=== PATIENT | male | born 1995 | race Caucasian/White ===

== ENCOUNTER 2023-07-18 10:24 | Emergency (ER) | payer BC, SELFPAY ==
[2023-07-18 10:29] VITALS: BP 143/109; PULSE 99; RESP 18; TEMP 36.7; O2SAT 98; BMI 33.0
--- NOTE | 2023-07-18 10:35 | XR_ITS ---
The [address] [address] Patient Name: XUAN CONNOR MRN: [id number] date: 1995 Sex: M Assigned Patient Location: ED.MAIN Current Patient Location: Accession/Order Number: [id number] Exam Date: 07/18/2023 11:00 Report Date: 07/18/2023 12:01 At the request of: JADON REED Procedure: XR hand RT min 3V EXAM: XR hand RT min 3V HISTORY: crush type injury ring finger COMPARISON: None. TECHNIQUE: 3 views of the right hand FINDINGS: There is no acute fracture or dislocation. The soft tissue is unremarkable. No radiopaque foreign body is noted. XR/XR hand RT min 3V IMPRESSION: No acute process. Electronically authenticated by: RICHARD ABBASI Date: 07/18/2023 12:01
--- NOTE | 2023-07-18 10:40 | ED.WOUNDLAC1 ---
HPI - Wound/Laceration General Chief Complaint: Wound/Laceration Stated Complaint: RT RING FINGER INJURY Time Seen by Provider: 07/18/23 10:29 Mode of arrival: walk-in Limitations: no limitations History of Present Illness HPI narrative: 28-year-old male presents for laceration and injury to his right ring finger. He was carrying a heavy item, a refrigerator and they were pushing it up into a truck but then it started falling backwards and the bottom of the refrigerator with a sharp edge of metal came down and crushed his finger. It caused a laceration. This happened just before coming into the emergency department. It's been a very long time since his last tetanus shot, he cannot recall. Related Data Allergies Allergy/AdvReac Type Severity Reaction Status Date / Time No Known Drug Allergies Allergy Verified 07/18/23 10:29 Review of Systems ROS Narrative A ten point review of systems is negative except as noted above. Exam Narrative Exam Narrative: Nurses note and vital signs reviewed and patient is not hypoxic. General: The patient appears well and in no apparent distress. Patient is resting comfortably on cart. Skin: Warm, dry, no pallor noted. There is no rash noted. Head: Normocephalic, atraumatic Eye: Normal conjunctiva, no drainage Ears, Nose, Mouth, and Throat: oral mucosa is moist. Nares patent. Cardiovascular: Regular Rate and Rhythm Respiratory: Patient is in no distress, no accessory muscle use GI: nontender Musculoskeletal: right ring finger has a linear laceration present, 1.5 cm in length. DIP and PIP have full range of motion. No other wounds are present. Neurological: A&O, normal speech Psychiatric: Cooperative Constitutional Vital Signs, click to edit/add: Last Vital Signs Temp 98.1 F 07/18/23 10:29 Pulse 99 H 07/18/23 10:29 Resp 18 07/18/23 10:29 BP 143/109 H 07/18/23 10:29 Pulse Ox 98 07/18/23 10:29 O2 Del Method Room Air 07/18/23 10:29 Course Vital Signs Vital signs: Vital Signs Temperature 98.1 F 07/18/23 10:29 Pulse Rate 99 H 07/18/23 10:29 Respiratory Rate 18 07/18/23 10:29 Blood Pressure 143/109 H 07/18/23 10:29 Pulse Oximetry 98 07/18/23 10:29 Oxygen Delivery Method Room Air 07/18/23 10:29 Temperature 98.1 F 07/18/23 10:29 Pulse Rate 99 H 07/18/23 10:29 Respiratory Rate 18 07/18/23 10:29 Blood Pressure 143/109 H 07/18/23 10:29 Pulse Oximetry 98 07/18/23 10:29 Oxygen Delivery Method Room Air 07/18/23 10:29 MDM - Wound/Laceration MDM Narrative Medical decision making narrative: the following procedure was performed by me. Finger block was applied to the right ring finger resulting in complete skin anesthesia. The area was prepped with Betadine ?3 and draped sterilely. It was explored for foreign bodies normal found and three 4-0 Ethilon sutures were placed resulting in good skin reapproximation and no complications. Splint applied, application checked by me and found to be appropriate, he is neurovascularly intact. Tetanus updated, sutures to be removed in 7-8 days. Differential Diagnosis Differential diagnosis: Likely laceration Imaging Data hand x-ray: My impression: no fracture. Possible tiny metallic foreign bodies present at the base of the 4th finger unrelated to today's injury. Discharge Plan Discharge Chief Complaint: Wound/Laceration Clinical Impression: Finger laceration Patient Disposition: Home, Self-Care Time of Disposition Decision: 11:31 Condition: Good Mode of Transportation: Private Vehicle Instructions: Finger Laceration (ED) Additional Instructions: Sutures to be removed in 7-8 days Stand Alone Forms: Portal Instructions Referrals: Physician,Non-Staff, MD [Primary Care Provider] - 1 week
[2023-07-18] MEDS: ADACEL DIPH,PERTUSS(ACELL),TET VAC/PF 0.5 ML ADULT SYRINGE IM (11:00)
[2023-07-18] MEDS: LIDOCAINE HCL 1% 100 MG/10 ML MDV INJ (11:00)
== END 2023-07-18 11:43 | disposition home or self-care (01) ==
PROVIDERS: Emergency Provider Emergency Medicine; Family Provider Family Medicine
DX: S61.214A Laceration without foreign body of right ring finger without damage to nail, initial encounter (principal); Z23 Encounter for immunization; W23.0XXA Caught, crushed, jammed, or pinched between moving objects, initial encounter
CPT/HCPCS: 12001; 73130; 90471; 90715; 99284

== ENCOUNTER 2023-11-15 16:51 | Observation (INO) | payer BC, SELFPAY ==
[2023-11-15] VITALS (16 sets, daily range): BP systolic 109–166; BP diastolic 68–93; PULSE 73–109; RESP 13–20; TEMP 36.3–37.5; O2SAT 88–97; BMI 33.0
--- NOTE | 2023-11-15 17:07 | ED_ITS ---
HPI - Abdominal Pain General Chief Complaint: Abdominal Pain Stated Complaint: LOWER R ABDOMINAL PAIN Time Seen by Provider: 11/15/23 16:56 Source: patient Mode of arrival: walk-in Limitations: no limitations History of Present Illness HPI narrative: The patient presenting to us with a right lower quadrant pain that started last night, patient have no fever no chills no other complaint he mentioned that the pain only limited to the right lower quadrant of his abdomen there is no nausea or vomiting and his last bowel movement was this morning. And his last time he had a meal was at 11:00 Related Data Home Medications Medication Instructions Recorded Confirmed No Known Home Medications 11/15/23 11/15/23 Allergies Allergy/AdvReac Type Severity Reaction Status Date / Time No Known Drug Allergies Allergy Verified 07/18/23 10:29 Review of Systems ROS Status of ROS 10 or more systems reviewed and unremark able except as noted in history and below [facility] Social History Smoking status: Never smoker Exam Narrative Exam Narrative: Nurses notes and vital signs reviewed and patient is not hypoxic. General: Well-appearing and in no apparent distress. Skin: Warm, dry, no pallor noted. No rash. Head: Normocephalic, atraumatic. Neck: Supple, non-tender. Eye: Pupils are equal, round and EOMI. No scleral icterus. Ears, NoseOral mucosa is moist, Cardiovascular: Regular Rate and Rhythm without murmur, gallop or rub. Respiratory: No accessory muscle use or respiratory distress. Lungs are clear to auscultation, no wheezing, rales or rhonchi Chest Wall: no tenderness Back: No midline thoracic or lumbar vertebral tenderness. No CVA tenderness Musculoskeletal: normal ROM, no calf or popliteal tenderness, no lower extremity edema/swelling GI: Abdomen is soft, non-distended. Normal bowel sounds. No masses appreciated. Right lower quadrant tenderness noted Neurological: A&O x4. No cranial nerve dysfunction observed. Psychiatric: Cooperative and interactive. Normal mood and affect. Constitutional Vital Signs, click to edit/add: Last Vital Signs Temp 99.5 F 11/15/23 16:55 Pulse 109 H 11/15/23 16:55 Resp 18 11/15/23 16:55 BP 166/93 H 11/15/23 16:55 Pulse Ox 94 L 11/15/23 16:55 O2 Del Method Room Air 11/15/23 16:55 Course Vital Signs Vital signs: Vital Signs Temperature 99.5 F 11/15/23 16:55 Pulse Rate 109 H 11/15/23 16:55 Respiratory Rate 18 11/15/23 16:55 Blood Pressure 166/93 H 11/15/23 16:55 Pulse Oximetry 94 L 11/15/23 16:55 Oxygen Delivery Method Room Air 11/15/23 16:55 Temperature 99.5 F 11/15/23 16:55 Pulse Rate 109 H 11/15/23 16:55 Respiratory Rate 18 11/15/23 16:55 Blood Pressure 166/93 H 11/15/23 16:55 Pulse Oximetry 94 L 11/15/23 16:55 Oxygen Delivery Method Room Air 11/15/23 16:55 MDM - Abdominal Pain MDM Narrative Medical decision making narrative: CBC shows leukocytosis blood culture obtained and the patient was started on ceftriaxone and Flagyl The patient CAT scan is positive for acute appendicitis Case was discussed with Dr. Gresham and the patient will be taken to surgery Patient kept n.p.o. Lab Data Labs: Lab Results 11/15/23 Range/Units 17:00 WBC 17.1 H (4.0-11.0) 10^3/uL RBC 5.23 (4.70-6.10) 10^6/uL Hgb 15.0 (14.0-18.0) g/dL Hct 45.0 (42.0-54.0) % MCV 86.0 (80.0-94.0) fL MCH 28.7 (25.9-34.0) pg MCHC 33.3 (29.9-35.2) g/dL RDW 12.8 (11.0-15.0) % Plt Count 319 (150-450) 10^3/uL MPV 9.8 (9.5-13.5) fL Neut % (Auto) 82.5 H (43.0-75.0) % Lymph % (Auto) 9.2 L (20.5-60.0) % Mcpherson % (Auto) 7.0 (1.7-12.0) % Eos % (Auto) 0.5 L (0.9-7.0) % Baso % (Auto) 0.5 (0.2-2.0) % Neut # (Auto) 14.1 H (1.4-6.5) 10^3/uL Lymph # (Auto) 1.6 (1.2-3.8) 10^3/uL [place] # (Auto) 1.2 H (0.3-0.8) 10^3/uL Eos # (Auto) 0.1 (0.0-0.7) 10^3/uL Baso # (Auto) 0.1 (0.0-0.1) 10^3/uL Abs Immat Gran (auto) 0.05 H (0.00-0.03) 10^3/uL Imm/Tot Granulo (auto) 0.3 (0.0-0.5) % Sodium 134 L (136-145) mmol/L Potassium 3.5 (3.5-5.1) mmol/L Chloride 98 (98-107) mmol/L Carbon Dioxide 28.2 (21.0-32.0) mmol/L Anion Gap 11.3 BUN 9.0 (7.0-18.0) mg/dL Creatinine 0.97 (0.70-1.30) mg/dL Est GFR ( Amer) >60 (>=60) Est GFR (Non-Af Amer) >60 (>=60) BUN/Creatinine Ratio 9.3 Glucose 99 (74-106) mg/dL Calcium 8.7 (8.5-10.1) mg/dL Total Bilirubin 0.5 (0.2-1.0) mg/dL AST 17 (15-37) U/L ALT 37 (16-63) U/L Alkaline Phosphatase 109 (46-116) U/L Total Protein 7.9 (6.4-8.2) g/dL Albumin 4.1 (3.4-5.0) g/dL Globulin 3.8 g/dL Albumin/Globulin Ratio 1.1 Discharge Plan Discharge Chief Complaint: Abdominal Pain Clinical Impression: Acute appendicitis Qualifiers: Acute appendicitis type: other Qualified Code(s): K35.890 - Other acute appendicitis without perforation or gangrene Patient Disposition: Admitted as Observation Time of Disposition Decision: 18:47
[2023-11-15] MEDS: KETOROLAC TROMETHAMINE 30 MG/ML VIAL 15 MG IVP (17:09)
[2023-11-15] MEDS: 0.9 % SODIUM CHLORIDE 1,000 ML 1000 ML IV (17:09)
[2023-11-15 17:13] LABS: Basophils Absolute Auto 0.1 10^3/uL (0.0-0.1); Basophils Percent Auto 0.5 % (0.2-2.0); Eosinophils Absolute Auto 0.1 10^3/uL (0.0-0.7); Eosinophils Percent Auto 0.5 % (0.9-7.0); Immature Granulocytes Abs Auto 0.05 10^3/uL (0.00-0.03); Immature Granulocytes Pct Auto 0.3 % (0.0-0.5); Lymphocytes Absolute Auto 1.6 10^3/uL (1.2-3.8); Lymphocytes Percent Auto 9.2 % (20.5-60.0); Mean Corpuscular HGB Conc 33.3 g/dL (29.9-35.2); Mean Corpuscular Hemoglobin 28.7 pg (25.9-34.0); Mean Platelet Volume 9.8 fL (9.5-13.5); Monocytes Absolute Auto 1.2 10^3/uL (0.3-0.8); Neutrophils Absolute Auto 14.1 10^3/uL (1.4-6.5); Neutrophils Percent Auto 82.5 % (43.0-75.0); Platelet Count 319 10^3/uL (150-450); Red Blood Count 5.23 10^6/uL (4.70-6.10); Red Cell Distribution Width 12.8 % (11.0-15.0); White Blood Count 17.1 10^3/uL (4.0-11.0)
--- NOTE | 2023-11-15 17:23 | CT_ITS ---
The [address] [address] Patient Name: XUAN CONNOR MRN: [id number] date: 1995 Sex: M Assigned Patient Location: ER Current Patient Location: ER Accession/Order Number: [id number] Exam Date: 11/15/2023 17:18 Report Date: 11/15/2023 18:32 At the request of: GEOVANNY KEANE Procedure: CT abdomen pelvis wo con EXAM: CT abdomen pelvis wo con HISTORY: rlq pain COMPARISON: None. TECHNIQUE: Unenhanced helical acquisition obtained through the abdomen and the pelvis. FINDINGS: The visualized lung bases and pleural spaces are clear. Unremarkable gallbladder. No significant biliary ductal dilatation. Allowing for the lack of intravenous contrast, the liver, spleen, pancreas, adrenal glands and the kidneys are unremarkable. Dilated inflamed appendix measuring 1.3 cm in diameter with adjacent mild periappendiceal inflammation. Trace ascites within the pelvis. No evidence of abscess or free intraperitoneal gas. Mildly enlarged ileocolic ligament lymph nodes consistent with reactive adenopathy. CT/CT abdomen pelvis wo con IMPRESSION: 1. Acute appendicitis. No evidence of appendiceal perforation. 2. Trace ascites. Critical results were NOTIFIED by TELEPHONE BY Dr. Mathiue Baldwin to Dr. Keane At 11/15/2023 6:09 PM EST. Electronically authenticated by: MATHIEU BALDWIN Date: 11/15/2023 18:32
[2023-11-15 17:25] LABS: Alanine Aminotransferase 37 U/L (16-63); Albumin Globulin Ratio 1.1; Albumin Level 4.1 g/dL (3.4-5.0); Alkaline Phosphatase 109 U/L (46-116); Anion Gap 11.3; Aspartate Amino Transferase 17 U/L (15-37); BUN Creatinine Ratio 9.3; Bilirubin Total 0.5 mg/dL (0.2-1.0); Calcium 8.7 mg/dL (8.5-10.1); Carbon Dioxide 28.2 mmol/L (21.0-32.0); Chloride 98 mmol/L (98-107); Estimated GFR (African America >60 (>=60); Estimated GFR (Non-African Ame >60 (>=60); Globulin 3.8 g/dL; Glucose 99 mg/dL (74-106); Potassium 3.5 mmol/L (3.5-5.1); Sodium 134 mmol/L (136-145); Total Protein 7.9 g/dL (6.4-8.2)
[2023-11-15] MEDS: CEFTRIAXONE 1,000 MG in 0.9 % SODIUM CHLORIDE 50 ML 100 MG IV (18:43)
[2023-11-15 18:52] LABS: Bilirubin Urine NEGATIVE (NEGATIVE); Blood Urine TRACE-I (NEGATIVE); Clarity Urine CLEAR (CLEAR); Color Urine LT. YELLOW (YELLOW); Glucose Urine UA NEGATIVE (NEGATIVE); Ketones Urine NEGATIVE (NEGATIVE); Leukocyte Esterase Urine NEGATIVE (NEGATIVE); Nitrite Urine NEGATIVE (NEGATIVE); Protein Urine NEGATIVE (NEG/TRACE); Urobilinogen Urine 0.2 EU/dL (0.2-1.0)
[2023-11-15 18:53] LABS: Urine Microscopic Indicated YES
[2023-11-15 18:58] LABS: Bacteria Urine NONE SEEN #/HPF (NONE SEEN); Mucus Urine NONE SEEN (NONE SEEN); Squamous Epithelial Cell Urine NONE SEEN #/LPF (NONE/RARE); WBC Urine NONE SEEN #/HPF (NONE SEEN)
[2023-11-15 18:59] LABS: Cast Seen? NONE SEEN #/LPF (NONE SEEN); Crystals Seen? None Seen #/HPF (None Seen)
--- NOTE | 2023-11-15 19:02 | PM.HP ---
H&P: HPI History of Present Illness Chief complaint: LOWER R ABDOMINAL PAIN Narrative: Dilan Haskins is a 28-year-old male who presented to the [facility] with complaints of right lower quadrant abdominal pain. CT scan of the abdomen and pelvis showed acute appendicitis. States the pain began this morning around 8:00-9:00 when he woke up. States he thought it was muscle pain so attempted to go to work and the pain did not resolve. He describes the pain as sharp and constant and states it worsens with movement. Rates the pain an 8-9/10 on admission. States pain is well controlled with pain medications recieved. Denies nausea, vomiting, diarrhea, constipation, blood in stools, fevers, chills. Previous surgical history significant for pilonidal cyst. Patient denies use of tobacco and admits to drinking socially [place] [address] CT Scan Report Signed Patient: XUAN HASKINS MR#: [id number] : 1995 Acct:[id number] Age/Sex: 28 / M ADM Date: 11/15/23 Loc: ER Attending Dr: Ordering Physician: Geovanny Keane Date of Service: 11/15/23 Procedure(s): CT abdomen pelvis wo con Accession Number(s): [id number] cc: Physician,Non-Staff M.D.~ The [place] [address] Patient Name: XUAN HASKINS MRN: [id number] date: 1995 Sex: M Assigned Patient Location: ER Current Patient Location: ER Accession/Order Number: [id number] Exam Date: 11/15/2023 17:18 Report Date: 11/15/2023 18:32 At the request of: GEOVANNY KEANE Procedure: CT abdomen pelvis wo con EXAM: CT abdomen pelvis wo con HISTORY: rlq pain COMPARISON: None. TECHNIQUE: Unenhanced helical acquisition obtained through the abdomen and the pelvis. FINDINGS: The visualized lung bases and pleural spaces are clear. Unremarkable gallbladder. No significant biliary ductal dilatation. Allowing for the lack of intravenous contrast, the liver, spleen, pancreas, adrenal glands and the kidneys are unremarkable. Dilated inflamed appendix measuring 1.3 cm in diameter with adjacent mild periappendiceal inflammation. Trace ascites within the pelvis. No evidence of abscess or free intraperitoneal gas. Mildly enlarged ileocolic ligament lymph nodes consistent with reactive adenopathy. CT/CT abdomen pelvis wo con IMPRESSION: 1. Acute appendicitis. No evidence of appendiceal perforation. 2. Trace ascites. Critical results were NOTIFIED by TELEPHONE BY Dr. Mathieu Baldwin to Dr. Keane At 11/15/2023 6:09 PM EST. Electronically authenticated by: MATHIEU BALDWIN Date: 11/15/2023 18:32 Dictated By: Mathieu Baldwin M.D. Signed By: 11/15/231834 DD/ 31 TD/TT: Customer Liaison: Review of Systems ROS Status of ROS 10 or more systems reviewed and unremarkable except as noted in history and below [facility] Social History Smoking status: Never smoker Meds Home Medications and Allergies Home Medications Medication Instructions Recorded Confirmed Type No Known Home Medications 11/15/23 11/15/23 History Allergies Allergy/AdvReac Type Severity Reaction Status Date / Time No Known Drug Allergies Allergy Verified 07/18/23 10:29 Exam Constitutional Vital Signs, click to edit/add: Last Vital Signs Temp 99.5 F 11/15/23 16:55 Pulse 109 H 11/15/23 16:55 Resp 18 11/15/23 16:55 BP 166/93 H 11/15/23 16:55 Pulse Ox 94 L 11/15/23 16:55 O2 Del Method Room Air 11/15/23 16:55 Common normals: no apparent distress, average body habitus and oriented x3 General appearance: cooperative and comfortable; not in distress Nutritional appearance: obese and overweight Orientation/consciousness: Yes awake, Yes oriented to person, Yes oriented to place and Yes oriented to time HENVT Common normals: normocephalic and head/scalp atraumatic Respiratory Common normals: normal respiratory effort Effort & inspection: able to speak in complete sentences Auscultation: clear to auscultation bilaterally; no crackles, no rales, no rhonchi and no wheezes Cardio Common normals: regular rhythm, S1 normal heart sound, S2 normal heart sound, no gallops, no murmurs and no rub Rate: tachycardic GI Inspection: normal to inspection Palpation: soft and tender Details: RLQ and McBurney's point Extremity Common normals: normal to inspection and full ROM Neuro Common normals: oriented x3 Sensorium/orientation: awake, alert, oriented to person, oriented to place and oriented to time Psych Common normals: mental status grossly normal, cooperative and affect normal Results Labs Labs: Short CBC 11/15/23 Range/Units 17:00 WBC 17.1 H (4.0-11.0) 10^3/uL Hgb 15.0 (14.0-18.0) g/dL Hct 45.0 (42.0-54.0) % Plt Count 319 (150-450) 10^3/uL BMP 11/15/23 17:00 Sodium 134 L Potassium 3.5 Chloride 98 Carbon Dioxide 28.2 BUN 9.0 Creatinine 0.97 Glucose 99 Calcium 8.7 Liver Function 11/15/23 Range/Units 17:00 Total Bilirubin 0.5 (0.2-1.0) mg/dL AST 17 (15-37) U/L ALT 37 (16-63) U/L Alkaline Phosphatase 109 (46-116) U/L Albumin 4.1 (3.4-5.0) g/dL Urine 11/15/23 Range/Units 18:30 Urine Color Lt. yellow (YELLOW) Urine Clarity Clear (CLEAR) Urine pH 6.0 (5.0-9.0) Ur Specific [place] 1.020 (1.005-1.025) Urine Protein Negative (NEG/TRACE) mg/dL Urine Glucose (UA) Negative (NEGATIVE) mg/dL Assessment and Plan Assessment and Plan (1) Acute appendicitis: Qualifiers: Acute appendicitis type: other Qualified Code(s): K35.890 - Other acute appendicitis without perforation or gangrene (2) Obesity (BMI 30.0-34.9): Plan laparoscopic appendectomy with possible open appendectomy. Risks benefits and alternatives to surgery may include infection, postoperative abscess weeks later, blood clots legs or lungs, bleeding, pneumonia, heart attack, stroke, and/or . He voiced understanding of the above and wish to proceed. It
[2023-11-15] MEDS: METRONIDAZOLE/SODIUM CHLORIDE 500 MG/100 ML PREMIX 100 MG IV (19:04)
--- OUTSIDE RECORDS SUMMARY | 2023-11-15 19:18 | XMS_ITS | CCD ---
Author Name Unknown Address [address] [place] [id number] Organization [facility] Care Team Providers Care Water Systems Designer Name Role Phone Bekah Nunez Unavailable MD Fede Hodges Primary Care Provider Devon French Attending Provider [phone] Fede Hodges Primary Care Unavailable Devon French Attending Unavailable Devon French Admitting Unavailable Medications Current Medications Medication Drug Class(es) Dates Sig (Normalized) Sig (Original) doxycycline monohydrate 100 mg oral capsule (1 source) Tetracycline-class Drug Start: 10-17-2022 take 1 capsule by mouth every twelve hours Doxycycline Monohydrate 100 MG 1 capsule Orally every 12 hrs for 7 days Sep, Active mupirocin 0.02 mg/mg topical ointment (1 source) RNA Synthetase Inhibitor Antibacterial Start: 10-17-2022 Mupirocin 2 % 1 application with Qtip to affected area Externally 2 times a day for 7 days Sep, Active Completed/Discontinued Medications Medication Drug Class(es) Dates Sig (Normalized) Sig (Original) cefTRIAXone (1 source) Cephalosporin Antibacterial Start: 05-18-2020 Rocephin 500 mg Apr, 500 mg Problems Problem Classification Problem Date Documented Da te Episodic/Chronic E Codes: Natural/environment (1 source) Bitten or stung by nonvenomous insect and other nonvenomous arthropods, initial encounter Episodic Superficial injury; contusion (1 source) Insect bite (nonvenomous), left ankle, initial encounter Episodic Unclassified (1 source) Encounter for fertility testing; Translations: [Encounter for fertility testing] Onset: 05-25-2023 Results Test Name Value Interpretation Reference Range Facility No Panel InformationOrdered By: Devon French on 05-25-2023 Semen Analysis Comment . [facility] Comment on above: No Abnormal specimen characteristics noted. Semen Round Cell Concentration Gross [facility] Semen WBC Concentration <1.0 M/mL <0.9 [facility] Sperm % Non-Motile 42 % [facility] Sperm Motility Total 58.0 % >40 [facility] Qualitative semen viscosityO rdered By: Devon French on 05-25-2023 Viscosity Ql (Yelena) Normal Normal [facility] Semen Analysis, Fertilityon 05-25-2023 Debris/Round Cells Gross Normal [facility] Comment on above: Order Comment: Metho d of Collection:: Masturbation Has the patient had a vasectomy?: N Type of Specimen Container:: Sterile Container Abstinence Period:: 6 DAYS Kept at body temperature?: Y Any Collection or Transport Problems?: N Performed By: #### S EMCOMP #### [facility] [address] [place] [address] [place] Immotile Sperm 42 % Normal [facility] Comment on above: Order Comment: Metho d of Collection:: Masturbation Has the patient had a vasectomy?: N Type of Specimen Container:: Sterile Container Abstinence Period:: 6 DAYS Kept at body temperature?: Y Any Collection or Transport Problems?: N Performed By: #### S EMCOMP #### [facility] [address] [place] [address] [place] Non-Progression Sperm Motili 13 % Normal [facility] Comment on above: Order Comment: Metho d of Collection:: Masturbation Has the patient had a vasectomy?: N Type of Specimen Container:: Sterile Container Abstinence Period:: 6 DAYS Kept at body temperature?: Y Any Collection or Transport Problems?: N Performed By: #### S EMCOMP #### [facility] [address] [place] [address] [place] Normal Sperm Morphology 9.0 % Normal >=4.0 [facility] Comment on above: Order Comment: Metho d of Collection:: Masturbation Has the patient had a vasectomy?: N Type of Specimen Container:: Sterile Container Abstinence Period:: 6 DAYS Kept at body temperature?: Y Any Collection or Transport Problems?: N Performed By: #### S EMCOMP #### [facility] [address] Rapid Progression Sperm Motili 45 % Normal [facility] Comment on above: Order Comment: Metho d of Collection:: Masturbation Has the patient had a vasectomy?: N Type of Specimen Container:: Sterile Container Abstinence Period:: 6 DAYS Kept at body temperature?: Y Any Collection or Transport Problems?: N Performed By: #### S EMCOMP #### [address] Semen Comment . Normal [facility] Comment on above: Order Comment: Metho d of Collection:: Masturbation Has the patient had a vasectomy?: N Type of Specimen Container:: Sterile Container Abstinence Period:: 6 DAYS Kept at body temperature?: Y Any Collection or Transport Problems?: N Result Comment: No A bnormal specimen characteristics noted. PERFORMED BY: [place] [address] PATHOLOGIST VISUAL MERCHANDISING MANAGER CLARISSA HENNESSY M.D. Performed By: #### S EMCOMP #### [address] Semen Liquefaction Normal Normal <=60 min [facility] Comment on above: Order Comment: Metho d of Collection:: Masturbation Has the patient had a vasectomy?: N Type of Specimen Container:: Sterile Container Abstinence Period:: 6 DAYS Kept at body temperature?: Y Any Collection or Transport Problems?: N Performed By: #### S EMCOMP #### [address] Semen Viscosity Normal Normal Normal [facility] Comment on above: Order Comment: Metho d of Collection:: Masturbation Has the patient had a vasectomy?: N Type of Specimen Container:: Sterile Container Abstinence Period:: 6 DAYS Kept at body temperature?: Y Any Collection or Transport Problems?: N Performed By: #### S EMCOMP #### [address] Semen Volume 2.0 mL Normal >=1.5 [facility] Comment on above: Order Comment: Metho d of Collection:: Masturbation Has the patient had a vasectomy?: N Type of Specimen Container:: Sterile Container Abstinence Period:: 6 DAYS Kept at body temperature?: Y Any Collection or Transport Problems?: N Performed By: #### S EMCOMP #### [facility] [address] Sperm Concentration 29.1 Normal >=15 [facility] Comment on above: Order Comment: Metho d of Collection:: Masturbation Has the patient had a vasectomy?: N Type of Specimen Container:: Sterile Container Abstinence Period:: 6 DAYS Kept at body temperature?: Y Any Collection or Transport Problems?: N Performed By: #### S EMCOMP #### [address] Total Motility (UT+MACHINE APPLICATOR CEMENTER) 58.0 % Normal >=40 (UT+MACHINE APPLICATOR CEMENTER) [facility] Comment on above: Order Comment: Metho d of Collection:: Masturbation Has the patient had a vasectomy?: N Type of Specimen Container:: Sterile Container Abstinence Period:: 6 DAYS Kept at body temperature?: Y Any Collection or Transport Problems?: N Performed By: #### S EMCOMP #### [address] WBC Concent, Semen <1.0 Normal <1.0 [facility] Comment on above: Order Comment: Metho d of Collection:: Masturbation Has the patient had a vasectomy?: N Type of Specimen Container:: Sterile Container Abstinence Period:: 6 DAYS Kept at body temperature?: Y Any Collection or Transport Problems?: N Performed By: #### S EMCOMP #### [address] Semen Analysis, FertilityOrd ered By: Devon French on 05-25-2023 Semen Appearance Normal Normal Normal [facility] Comment on above: Order Comment: Metho d of Collection:: Masturbation Has the patient had a vasectomy?: N Type of Specimen Container:: Sterile Container Abstinence Period:: 6 DAYS Kept at body temperature?: Y Any Collection or Transport Problems?: N Performed By: #### S EMCOMP #### [facility] [address] Semen pH 8.5 Normal >=7.2 [facility] Comment on above: Order Comment: Methnando d of Collection:: Masturbation Has the patient had a vasectomy?: N Type of Specimen Container:: Sterile Container Abstinence Period:: 6 DAYS Kept at body temperature?: Y Any Collection or Transport Problems?: N Performed By: #### S EMCOMP #### [facility] [address] [place] [id number] [facility] Semen liquefaction time alberto urementOrdered By: Devon French on 05-25-2023 Liquefaction (Yelena) [Time] Normal <=60 min [facility] Semen volumeOrdered By: Chris French on 05-25-2023 Specimen volume (Yelena) 2.0 mL >1.5 [facility] Sperm countOrdered By: Devon French on 05-25-2023 Spermatozoa (Yelena) [#/Vol] 29.1 M/mL >15 [facility] Sperm morphologyOrdered By: Devon French on 05-25-2023 Spermatozoa Nom (Yelena) 9.0 % >4.0 [facility] Vital Signs Date Time Vital Sign Value Performing Clinician Facility 10-17-2022 14:05-0500 Body height 185.42 cm Bekah Nunez Other [facility] Other 10-17-2022 14:05-0500 Body mass index (BMI) [Ratio] 32.65 kg/m2 Bekah Nunez Other [facility] Other 10-17-2022 14:05-0500 Body temperature 97.5 [degF] Bekah Nunez Other [facility] Other 10-17-2022 14:05-0500 Body weight 112.27 kg Bekah Nunez Other [facility] Other 10-17-2022 14:05-0500 Diastolic blood pressure 86 mm[Hg] Bekah Dela Cruzault Other [facility] Other 10-17-2022 14:05-0500 Respiratory rate 18 /min Bekah Dela Cruzault Other [facility] Other 10-17-2022 14:05-0500 SaO2% (BldA) [Mass fraction] 97 % Bekah Nunez Other [facility] Other 10-17-2022 14:05-0500 Systolic blood pressure 136 mm[Hg] Bekah Dela Cruzault Other [facility] Other Encounters Encounter Date Encounter Type Care Provider Facility Start: 05-25-2023 End: 05-25-2023 ambulatory Fede Hodges Facility:[facility] Start: 05-25-2023 End: 05-25-2023 ambulatory MD Fede Hodges Work Phone: [facility] Work Phone: Start: 05-25-2023 End: 05-25-2023 Patient encounter procedure MD Fede Hodges Work Phone: [facility] [place] Work Phone: Start: 10-17-2022 End: 10-17-2022 ambulatory Bekah Enrique Other [facility] Other Start: 10-17-2022 Office outpatient visit 15 minutes Bekah Nunez [facility] Payers Date Payer Category Payer [facility] [id number] 2023 Self-pay Unknown [id number] Social History Date Type Detail Facility Unknown if ever smoked [facility] Other Sex Assigned At Sex Assigned At Bir th [facility] Other Start: 1995 Sex Assigned At Male [facility] Clinical Note 05-25-2023 Note Date & Type Note Facility 05-25-2023 Note [facility] Sperm Rapid Progressive May 25, 2023 9:00am 45 % Clinical Note 05-25-2023 Note Date & Type Note Facility 05-25-2023 Note [facility] Sperm Non-Progressive May 25, 2023 9:00am 13 % Evaluation note 10-17-2022 Note Date & Type Note Facility 10-17-2022 Evaluation note Encounter Date Diagnosis Assessment Notes Sep, Insect bite (nonvenomous), left ankle, initial encounter (ICD-10 - S90.562A) Take medications as directed. Complete all doses. Unable to determine what type of insect cause bites. May try Calamine lotion and or Baking soda in bathtub for comfort. Follow up with primary care provider if no improvement of symptoms with treatment plan Sep, Bitten or stung by nonvenomous insect and other nonvenomous arthropods, initial encounter (ICD-10 - W57.XXXA) [facility] Other Evaluation note Note Date & Type Note Facility Evaluation note No assessment information availa [facility] Work Phone: Chief Complaint and Reason for Visit Chief Complaint fertility Advance Directives No Advanced Directives Records Found Advance Directive Response Recorded Date/ Time Advance Directives No May 18, 2023 11:54am Summary Purpose Family History No Family History Records Found Additional Source Comments REASON FOR VISIT (unrecogniz ed section and content) POSS BUG BITE LEFT ANKEL Care Teams (unrecognized sec tion and content) Team Status: Active Member Role Status Dates Feed Hodges MD Primary Care Provider Active Team Status: Inactive Member Role Status Dates Fede Hodges MD Primary Care Provider Active Devon French Attending Provider Active Goals (unrecognized section and content) Goals may be documented in a n alternate section (unrecognized sect ion and content) No Status Records Found INFORMATION SOURCE (unrecogn ized section and content) DATE CREATED AUTHOR 06/08/2023 [facility] FOR RECORDS PERTAINING TO PATIENTS WHO ARE OR HAVE BEEN ENROLLED IN A CHEMICAL DEPENDENCY/SUBSTANCEABUSE PROGRAM, SOME INFORMATION MAY BE OMITTED. This clinical summary was aggregated from multiple sources. Caution should be exercised in using it in the provision of clinical care. This summary normalizes information from multiple sources, and as a consequence, information in this document may materially change the coding, format and clinical context of patient data. In addition, data may be omitted in some cases. CLINICAL DECISIONS SHOULD BE BASED ON THE PRIMARY CLINICAL RECORDS. [facility]. provides no warranty or guarantee of the accuracy or completeness of information in this document.
--- OUTSIDE RECORDS SUMMARY | 2023-11-15 19:21 | XMS_ITS | CCD ---
Author Name Unknown Address [address] [place] [address] Organization [facility] Care Team Providers Care Motor Vehicle Parts Interpreter Name Role Phone Bekah Nunez Unavailable MD Fede Hodges Primary Care Provider Devon French Attending Provider [phone] Fede Hodges Primary Care Unavailable Devon French [...] French on 05-25-2023 Semen Analysis Comment . [facility] Comment on above: No Abnormal specimen characteristics noted. Semen Round Cell Concentration Gross [facility] Semen WBC Concentration <1.0 M/mL <0.9 [facility] Sperm % Non-Motile 42 % [facility] Sperm Motility Total 58.0 % >40 [facility] Qualitative semen viscosityO rdered By: Devon French on 05-25-2023 Viscosity Ql (Yelena) Normal Normal [facility] Semen Analysis, Fertilityon 05-25-2023 Debris/Round Cells Gross Normal [facility] Comment on above: Order Comment: Metho d of Collection:: Masturbation Has the patient had a vasectomy?: N Type of Specimen Container:: Sterile Container Abstinence Period:: 6 DAYS Kept at body temperature?: Y Any Collection or Transport Problems?: N Performed By: #### S EMCOMP #### [facility] [address] [place] [address] [place] Immotile Sperm 42 % Normal [facility] Comment on above: Order Comment: Metho d of Collection:: Masturbation Has the patient had a vasectomy?: N Type of Specimen Container:: Sterile Container Abstinence Period:: 6 DAYS Kept at body temperature?: Y Any Collection or Transport Problems?: N Performed By: #### S EMCOMP #### [facility] [address] [place] [address] [place] Non-Progression Sperm Motili 13 % Normal [facility] Comment on above: Order Comment: Metho d of Collection:: Masturbation Has the patient had a vasectomy?: N Type of Specimen Container:: Sterile Container Abstinence Period:: 6 DAYS Kept at body temperature?: Y Any Collection or Transport Problems?: N Performed By: #### S EMCOMP #### [facility] [address] [place] [address] [place] Normal Sperm Morphology 9.0 % Normal >=4.0 [facility] Comment on above: Order Comment: Metho d of Collection:: Masturbation Has the patient had a vasectomy?: N Type of Specimen Container:: Sterile Container Abstinence Period:: 6 DAYS Kept at body temperature?: Y Any Collection or Transport Problems?: N Performed By: #### S EMCOMP #### [facility] [address] [place] Progression Sperm Motili 45 % Normal [facility] Comment on above: Order Comment: Metho d of Collection:: Masturbation Has the patient had a vasectomy?: N Type of Specimen Container:: Sterile Container Abstinence Period:: 6 DAYS Kept at body temperature?: Y Any Collection or Transport Problems?: N Performed By: #### S EMCOMP #### [address] Semen Comment . Normal [facility] Comment on above: Order Comment: Metho d of Collection:: Masturbation Has the patient had a vasectomy?: N Type of Specimen Container:: Sterile Container Abstinence Period:: 6 DAYS Kept at body temperature?: Y Any Collection or Transport Problems?: N Result Comment: No A bnormal specimen characteristics noted. PERFORMED BY: [place] [address] PATHOLOGIST DRYWALL METAL STUD WORKER CLARISSA HENNESSY M.D. Performed By: #### S EMCOMP #### [address] Semen Liquefaction Normal Normal <=60 min [facility] Comment on above: Order Comment: Metho d of Collection:: Masturbation Has the patient had a vasectomy?: N Type of Specimen Container:: Sterile Container Abstinence Period:: 6 DAYS Kept at body temperature?: Y Any Collection or Transport Problems?: N Performed By: #### S EMCOMP #### [address] Semen Viscosity Normal Normal Normal [facility] Comment on above: Order Comment: Metho d of Collection:: Masturbation Has the patient had a vasectomy?: N Type of Specimen Container:: Sterile Container Abstinence Period:: 6 DAYS Kept at body temperature?: Y Any Collection or Transport Problems?: N Performed By: #### S EMCOMP #### [address] Semen Volume 2.0 mL Normal >=1.5 [facility] Comment on above: Order Comment: Metho d of Collection:: Masturbation Has the patient had a vasectomy?: N Type of Specimen Container:: Sterile Container Abstinence Period:: 6 DAYS Kept at body temperature?: Y Any Collection or Transport Problems?: N Performed By: #### S EMCOMP #### [facility] [address] Sperm Concentration 29.1 Normal >=15 [facility] Comment on above: Order Comment: Metho d of Collection:: Masturbation Has the patient had a vasectomy?: N Type of Specimen Container:: Sterile Container Abstinence Period:: 6 DAYS Kept at body temperature?: Y Any Collection or Transport Problems?: N Performed By: #### S EMCOMP #### [address] Total Motility (IL+BPM SOLUTION ARCHITECT) 58.0 % Normal >=40 (IL+BPM SOLUTION ARCHITECT) [facility] Comment on above: Order Comment: Metho d of Collection:: Masturbation Has the patient had a vasectomy?: N Type of Specimen Container:: Sterile Container Abstinence Period:: 6 DAYS Kept at body temperature?: Y Any Collection or Transport Problems?: N Performed By: #### S EMCOMP #### [address] WBC Concent, Semen <1.0 Normal <1.0 [facility] Comment on above: Order Comment: Metho d of Collection:: Masturbation Has the patient had a vasectomy?: N Type of Specimen Container:: Sterile Container Abstinence Period:: 6 DAYS Kept at body temperature?: Y Any Collection or Transport Problems?: N Performed By: #### S EMCOMP #### [address] Semen Analysis, FertilityOrd ered By: Devon French on 05-25-2023 Semen Appearance Normal Normal Normal [facility] Comment on above: Order Comment: Metho d of Collection:: Masturbation Has the patient had a vasectomy?: N Type of Specimen Container:: Sterile Container Abstinence Period:: 6 DAYS Kept at body temperature?: Y Any Collection or Transport Problems?: N Performed By: #### S EMCOMP #### [facility] [address] Semen pH 8.5 Normal >=7.2 [facility] Comment on above: Order Comment: Methnando d of Collection:: Masturbation Has the patient had a vasectomy?: N Type of Specimen Container:: Sterile Container Abstinence Period:: 6 DAYS Kept at body temperature?: Y Any Collection or Transport Problems?: N Performed By: #### S EMCOMP #### [facility] [address] [place] [id number] [facility] Semen liquefaction time alberto urementOrdered By: Devon French on 05-25-2023 Liquefaction (Yelena) [Time] Normal <=60 min [facility] Semen volumeOrdered By: Chris French on 05-25-2023 Specimen volume (Yelena) 2.0 mL >1.5 [facility] Sperm countOrdered By: Devon French on 05-25-2023 Spermatozoa (Yelena) [#/Vol] 29.1 M/mL >15 [facility] Sperm morphologyOrdered By: Devon French on 05-25-2023 [place] Nom (Yelena) 9.0 % >4.0 [facility] Vital Signs Date Time Vital Sign Value Performing Clinician Facility 10-17-2022 14:05-0500 Body height 185.42 cm Bekah Nnuez Other [email or web address] Other 10-17-2022 14:05-0500 Body mass index (BMI) [Ratio] 32.65 kg/m2 Bekah Nunez Other [email or web address] Other 10-17-2022 14:05-0500 Body temperature 97.5 [degF] Bekah Nunez Other [email or web address] Other 10-17-2022 14:05-0500 Body weight 112.27 kg Bekah Nunez Other [email or web address] Other 10-17-2022 14:05-0500 Diastolic blood pressure 86 mm[Hg] Bekah Dela Cruzault Other [email or web address] Other 10-17-2022 14:05-0500 Respiratory rate 18 /min Bekah Dela Cruzault Other [email or web address] Other 10-17-2022 14:05-0500 SaO2% (BldA) [Mass fraction] 97 % Bekah Nunez Other [email or web address] Other 10-17-2022 14:05-0500 Systolic blood pressure 136 mm[Hg] Bekah Dela Cruzault Other [email or web address] Other Encounters Encounter Date Encounter Type Care Provider Facility Start: 05-25-2023 End: 05-25-2023 ambulatory Fede Hodges Facility:[facility] Start: 05-25-2023 End: 05-25-2023 ambulatory MD Fede Hodges Work Phone: [facility] Work Phone: Start: 05-25-2023 End: 05-25-2023 Patient encounter procedure MD Fede Hodges Work Phone: [facility] [place] Work Phone: Start: 10-17-2022 End: 10-17-2022 ambulatory Bekah Enrique Other [email or web address] Other Start: 10-17-2022 Office outpatient visit 15 minutes Bekah Nunez [facility] Payers Date Payer Category Payer [place] [id number] 2023 Self-pay Unknown [id number] Social History Date Type Detail Facility Unknown if ever smoked [email or web address] Other Sex Assigned At Sex Assigned At Bir th [email or web address] Other Start: 1995 Sex Assigned At Male F [facility] Clinical Note 05-25-2023 Note Date & Type Note Facility 05-25-2023 Note [facility] Sperm Rapid Progressive May 25, 2023 9:00am 45 % Clinical Note 05-25-2023 Note Date & Type Note Facility 05-25-2023 Note [facility] Sperm Non-Progressive May 25, 2023 9:00am [...] nonvenomous arthropods, initial encounter (ICD-10 - W57.XXXA) [facility] [employer] Other Evaluation note Note Date & Type Note Facility Evaluation note No assessment information availa [facility] Work Phone: Chief Complaint and Reason [...] Team Status: Active Member Role Status Dates Fede Hodges MD Primary Care Provider Active Team Status: Inactive Member Role Status Dates Fede Hodges MD Primary Care Provider Active Devon French Attending Provider Active Goals (unrecognized section and content) Goals may be documented in a n alternate section (unrecognized sect ion and content) No Status Records Found INFORMATION SOURCE (unrecogn ized section and content) DATE CREATED AUTHOR 06/08/2023 [facility] FOR RECORDS PERTAINING TO PATIENTS WHO ARE [...] BE BASED ON THE PRIMARY CLINICAL RECORDS. [facility] [employer]. provides no warranty or guarantee of the accuracy or completeness of information in this document.
--- NOTE | 2023-11-15 19:34 | PM.GSPRC ---
Date of procedure: 11/15/23 Indications for Procedure: Acute appendicitis Pre-op diagnosis: Acute appendicitis Post-op diagnosis: same as pre-op Procedure: laparoscopic appendectomy Findings: acute appendicitis Anesthesia: GETA Surgeon: Terrell Gresham Procedure Summary: LAPAROSCOPIC APPENDECTOMY The patient was taken to the operating suite, placed in the supine position and given a general anesthetic by the anesthesiologist. The abdomen was prepped and draped in the usual sterile fashion. timeout was taken and preoperative antibiotics and SCDs were placed on the patient.A subumbilical incision was made down to the anterior rectus fascia and was opened in the midline and traction sutures of #0 Vicryl were placed. The peritoneal cavity was entered and the Alvina port was placed into the abdominal cavity. The abdomen was insufflated with carbon dioxide to 15 mmHg pressure. The laparoscope was then placed with an acute suppurative appendix found when the patient was placed in Trendelenburg position. A 12 mm port was placed in the left lower quadrant and another 12 mm port was placed in the right upper quadrant all under direct visualization. A grasper was placed on the mesoappendix and it was held anteriorly on traction and then a curved dissector was used to dissect a window in the mesoappendix and then an Endo-SARIKA stapling device was fired across the base the appendix with hemostasis being maintained. The mesoappendix was taken down with LigaSure device maintaining hemostasis.. Hemostasis being maintained, the abdomen was irrigated with 200 mL of normal saline and this was aspirated. Hemostasis being maintained, all ports were then removed after the appendix had been removed in a bag and it was sent to pathology. Anterior rectus fascia was closed with #0 Vicryl suture in an interrupted fashion and the other two port sites were also closed with #0 Vicryl suture in an interrupted fashion. 0.5% Marcaine 30 cc was used to anesthetize subcutaneous tissue. Skin was closed with 4 Monocryl suture in running subicular fashion. Sponge, needle and instrument counts were correct. Case was clean, contaminated emergency Specimen - Appendix The patient went to recovery room in satisfactory condition. Red Mud Thickener Operator: DARION Shen;Barbra Lincoln MS three Estimated blood loss (mL): 0 Specimens: appendix Complications: No Condition: stable Disposition: PACU
[2023-11-15] MEDS: BUPIVACAINE HCL 0.5% PF 50 MG/10 ML VIAL 20 ML INJ (20:13)
[2023-11-15] MEDS: LACTATED RINGER'S SOLUTION 1,000 ML 50 ML IV (21:55)
[2023-11-16] MEDS: CELECOXIB 200 MG CAPSULE PO ×2 (00:21→08:37)
[2023-11-16 00:22] VITALS: BP 147/64; PULSE 95; RESP 20; TEMP 36.9; O2SAT 90
[2023-11-16] MEDS: METRONIDAZOLE/SODIUM CHLORIDE 500 MG/100 ML PREMIX 100 MG IV (03:09)
[2023-11-16 04:00] VITALS: BP 121/68; PULSE 78; RESP 20; TEMP 36.6; O2SAT 91
[2023-11-16 06:01] LABS: Basophils Percent Auto 0.2 % (0.2-2.0); Hematocrit 43.3 % (42.0-54.0); Hemoglobin 14.1 g/dL (14.0-18.0); Immature Granulocytes Abs Auto 0.07 10^3/uL (0.00-0.03); Immature Granulocytes Pct Auto 0.4 % (0.0-0.5); Lymphocytes Absolute Auto 1.4 10^3/uL (1.2-3.8); Lymphocytes Percent Auto 8.8 % (20.5-60.0); Mean Corpuscular HGB Conc 32.6 g/dL (29.9-35.2); Mean Corpuscular Hemoglobin 28.7 pg (25.9-34.0); Mean Platelet Volume 9.8 fL (9.5-13.5); Monocytes Percent Auto 6.1 % (1.7-12.0); Neutrophils Absolute Auto 13.5 10^3/uL (1.4-6.5); Neutrophils Percent Auto 84.5 % (43.0-75.0); Platelet Count 286 10^3/uL (150-450); Red Blood Count 4.92 10^6/uL (4.70-6.10); Red Cell Distribution Width 12.9 % (11.0-15.0)
--- OUTSIDE RECORDS SUMMARY | 2023-11-16 06:42 | XMS_ITS | CCD ---
Author Name Unknown Address [address] [place] [id number] Organization [facility] Care Team Providers Care Telephone Interceptor Operator Name Role Phone Bekah Nunez Unavailable MD Fede Hodges Primary Care Provider Devon French Attending Provider Fede Hodges Primary Care Unavailable Devon French [...] French on 05-25-2023 Semen Analysis Comment . [facility] Comment on above: No Abnormal specimen characteristics noted. Semen Round Cell Concentration Gross [facility] Semen WBC Concentration <1.0 M/mL <0.9 [facility] Sperm % Non-Motile 42 % [facility] Sperm Motility Total 58.0 % >40 [facility] Qualitative semen viscosityO rdered By: Devon French on 05-25-2023 Viscosity Ql (Yelena) Normal Normal [facility] Semen Analysis, Fertilityon 05-25-2023 Debris/Round Cells Gross Normal [facility] Comment on above: Order Comment: Metho d of Collection:: Masturbation Has the patient had a vasectomy?: N Type of Specimen Container:: Sterile Container Abstinence Period:: 6 DAYS Kept at body temperature?: Y Any Collection or Transport Problems?: N Performed By: #### S EMCOMP #### [facility] [address] [place] [address] [place] Immotile Sperm 42 % Normal [facility] Comment on above: Order Comment: Metho d of Collection:: Masturbation Has the patient had a vasectomy?: N Type of Specimen Container:: Sterile Container Abstinence Period:: 6 DAYS Kept at body temperature?: Y Any Collection or Transport Problems?: N Performed By: #### S EMCOMP #### [facility] [address] [place] [address] [place] Non-Progression Sperm Motili 13 % Normal [facility] Comment on above: Order Comment: Metho d of Collection:: Masturbation Has the patient had a vasectomy?: N Type of Specimen Container:: Sterile Container Abstinence Period:: 6 DAYS Kept at body temperature?: Y Any Collection or Transport Problems?: N Performed By: #### S EMCOMP #### [facility] [address] [place] [address] [place] Normal Sperm Morphology 9.0 % Normal >=4.0 [facility] Comment on above: Order Comment: Metho d of Collection:: Masturbation Has the patient had a vasectomy?: N Type of Specimen Container:: Sterile Container Abstinence Period:: 6 DAYS Kept at body temperature?: Y Any Collection or Transport Problems?: N Performed By: #### S EMCOMP #### [facility] [address] Rapid Progression Sperm Motili 45 % Normal [facility] Comment on above: Order Comment: Metho d of Collection:: Masturbation Has the patient had a vasectomy?: N Type of Specimen Container:: Sterile Container Abstinence Period:: 6 DAYS Kept at body temperature?: Y Any Collection or Transport Problems?: N Performed By: #### S EMCOMP #### [address] Semen Comment . Normal [facility] Comment on above: Order Comment: Metho d of Collection:: Masturbation Has the patient had a vasectomy?: N Type of Specimen Container:: Sterile Container Abstinence Period:: 6 DAYS Kept at body temperature?: Y Any Collection or Transport Problems?: N Result Comment: No A bnormal specimen characteristics noted. PERFORMED BY: [place] [address] PATHOLOGIST NEWS ANALYST CLARISSA HENNESSY M.D. Performed By: #### S EMCOMP #### [address] Semen Liquefaction Normal Normal <=60 min [facility] Comment on above: Order Comment: Metho d of Collection:: Masturbation Has the patient had a vasectomy?: N Type of Specimen Container:: Sterile Container Abstinence Period:: 6 DAYS Kept at body temperature?: Y Any Collection or Transport Problems?: N Performed By: #### S EMCOMP #### [address] Semen Viscosity Normal Normal Normal [facility] Comment on above: Order Comment: Metho d of Collection:: Masturbation Has the patient had a vasectomy?: N Type of Specimen Container:: Sterile Container Abstinence Period:: 6 DAYS Kept at body temperature?: Y Any Collection or Transport Problems?: N Performed By: #### S EMCOMP #### [address] Semen Volume 2.0 mL Normal >=1.5 [facility] Comment on above: Order Comment: Metho d of Collection:: Masturbation Has the patient had a vasectomy?: N Type of Specimen Container:: Sterile Container Abstinence Period:: 6 DAYS Kept at body temperature?: Y Any Collection or Transport Problems?: N Performed By: #### S EMCOMP #### [facility] [address] Sperm Concentration 29.1 Normal >=15 [facility] Comment on above: Order Comment: Metho d of Collection:: Masturbation Has the patient had a vasectomy?: N Type of Specimen Container:: Sterile Container Abstinence Period:: 6 DAYS Kept at body temperature?: Y Any Collection or Transport Problems?: N Performed By: #### S EMCOMP #### [address] Total Motility (GA+COMPLAINTS COORDINATOR) 58.0 % Normal >=40 (GA+COMPLAINTS COORDINATOR) [facility] Comment on above: Order Comment: Metho d of Collection:: Masturbation Has the patient had a vasectomy?: N Type of Specimen Container:: Sterile Container Abstinence Period:: 6 DAYS Kept at body temperature?: Y Any Collection or Transport Problems?: N Performed By: #### S EMCOMP #### [address] WBC Concent, Semen <1.0 Normal <1.0 [facility] Comment on above: Order Comment: Metho d of Collection:: Masturbation Has the patient had a vasectomy?: N Type of Specimen Container:: Sterile Container Abstinence Period:: 6 DAYS Kept at body temperature?: Y Any Collection or Transport Problems?: N Performed By: #### S EMCOMP #### [address] Semen Analysis, FertilityOrd ered By: Devon French on 05-25-2023 Semen Appearance Normal Normal Normal [facility] Comment on above: Order Comment: Metho d of Collection:: Masturbation Has the patient had a vasectomy?: N Type of Specimen Container:: Sterile Container Abstinence Period:: 6 DAYS Kept at body temperature?: Y Any Collection or Transport Problems?: N Performed By: #### S EMCOMP #### [facility] [address] Semen pH 8.5 Normal >=7.2 [facility] Comment on above: Order Comment: Methnando d of Collection:: Masturbation Has the patient had a vasectomy?: N Type of Specimen Container:: Sterile Container Abstinence Period:: 6 DAYS Kept at body temperature?: Y Any Collection or Transport Problems?: N Performed By: #### S EMCOMP #### [facility] [address] [place] [id number] [facility] Semen liquefaction time alberto urementOrdered By: Devon French on 05-25-2023 Liquefaction (Yelena) [Time] Normal <=60 min [facility] Semen volumeOrdered By: Chris French on 05-25-2023 Specimen volume (Yelena) 2.0 [address] >[address]5 [facility] Sperm countOrdered By: Devon French on 05-25-2023 [place] (Yelena) [#/Vol] 29.1 M/mL >15 [facility] Sperm morphologyOrdered By: Devon French on 05-25-2023 [place] Nom (Yelena) 9.0 % >4.0 [facility] Vital Signs Date Time Vital Sign Value Performing Clinician Facility 10-17-2022 14:05-0500 Body height 185.42 cm Bekah Nunez Other [email or web address] Other 10-17-2022 14:05-0500 Body mass index (BMI) [Ratio] 32.65 kg/m2 Bekah Nunez Other [email or web address] Other 10-17-2022 14:05-0500 Body temperature 97.5 [degF] Bekah Nunez Other [email or web address] Other 10-17-2022 14:05-0500 Body weight 112.27 kg Bekah Nunez Other [email or web address] Other 10-17-2022 14:05-0500 Diastolic blood pressure 86 mm[Hg] Bekah Dela Cruzault Other [email or web address] Other 10-17-2022 14:05-0500 Respiratory rate 18 /min Bekah Dela Cruzault Other [email or web address] Other 10-17-2022 14:05-0500 SaO2% (BldA) [Mass fraction] 97 % Bekah Nunez Other [email or web address] Other 10-17-2022 14:05-0500 Systolic blood pressure 136 mm[Hg] Bekah Dela Cruzault Other [email or web address] Other Encounters Encounter Date Encounter Type Care Provider Facility Start: 05-25-2023 End: 05-25-2023 ambulatory Fede Hodges Facility:[facility] Start: 05-25-2023 End: 05-25-2023 ambulatory MD Fede Hodges Work Phone: [facility] Work Phone: Start: 05-25-2023 End: 05-25-2023 Patient encounter procedure MD Fede Hodges Work Phone: [facility] [place] Work Phone: Start: 10-17-2022 End: 10-17-2022 ambulatory Bekah Enrique Other [email or web address] Other Start: 10-17-2022 Office outpatient visit 15 minutes Bekah Nunez [facility] Payers Date Payer Category Payer [facility] [id number] 2023 Self-pay Unknown [id number] Social History Date Type Detail Facility Unknown if ever smoked [email or web address] Other Sex Assigned At Sex Assigned At Bir th [email or web address] Other Start: 1995 Sex Assigned At Male [facility] Clinical Note 05-25-2023 Note Date & Type Note Facility 05-25-2023 Note [facility] Sperm Rapid Progressive May 25, 2023 9:00am 45 % Clinical Note 05-25-2023 Note Date & Type Note Facility 05-25-2023 Note [facility] Sperm Non-Progressive May 25, 2023 9:00am [...] nonvenomous arthropods, initial encounter (ICD-10 - W57.XXXA) [facility] Other Evaluation note Note Date & Type Note Facility Evaluation note No assessment information availa [facility] Work Phone: Chief Complaint and Reason for [...] section and content) DATE CREATED AUTHOR 06/08/2023 [facility] FOR RECORDS PERTAINING TO PATIENTS WHO [...] BE BASED ON THE PRIMARY CLINICAL RECORDS. [facility] [employer] [facility]. provides no warranty or guarantee of the accuracy or completeness of information in this document.
[2023-11-16 08:30] VITALS: BP 138/72; PULSE 79; RESP 18; TEMP 36.4; O2SAT 91
--- NOTE | 2023-12-06 11:53 | P.DS_ITS ---
DS: Providers Provider Date of admission: 11/15/23 21:08 Primary care physician: Non-Staff PhysicianMD Admitting clinician: Terrell Gresham Attending physician on admission: Terrell Gresham Attending physician on discharge: Terrell Gresham Discharging clinician: Terrell Gresham Anticipated date of discharge: 11/16/23 DS: Diagnosis Discharge Diagnosis (1) Acute appendicitis: Qualifiers: Acute appendicitis type: other Qualified Code(s): K35.890 - Other acute appendicitis without perforation or gangrene (2) Obesity (BMI 30.0-34.9): DS: Summary Hospital Course Hospital Course: 28-year-old male presented with acute appendicitis and was taken for an uneventful laparoscopic appendectomy and admitted overnight for observation. Nurse was called the next day and he was doing well eating and ambulating and pain was under control. He would take Tylenol or ibuprofen p.r.n. pain. He was to follow up in the office in 1-2 weeks and refrain from lifting more than 5 lb for 1 month. Status at Discharge Functional status at discharge: independent ambulation Overall status at discharge: patient is progressing back to baseline Time Spent with Patient Time attestation: Total time spent providing and/or coordinating discharge services: Exam Constitutional Vital Signs, click to edit/add: Last Vital Signs Temp 97.6 F 11/16/23 08:30 Pulse 79 11/16/23 08:30 Resp 18 11/16/23 08:30 BP 138/72 11/16/23 08:30 Pulse Ox 91 L 11/16/23 08:30 O2 Del Method Room Air 11/16/23 08:30 O2 Flow Rate 1 11/15/23 23:06 Discharge Plan Discharge Disposition: Home, Self-Care Discharge Medications: No Action No Known Home Medications Activity: increase activity as tolerated and return to work once cleared by your PCP/specialist Patient Instructions: Laparoscopic Appendectomy (DC) Activity Restrictions/Additional Instructions: No lifting more than 10lbs or straining for at least two weeks. May take tylenol and ibuprofen rotating, or at the same time if times up that way. If temp is >101 call physician office or come to ER If pain is uncontrollable call physician office or come to ER Monitor for red streaks, warmth, or swelling on or around incision sites, if that occurs call physician or come to ER. Forms: Portal Instructions Referrals: Physician,Non-Staff, [Primary Care Provider] - 1 week Follow Up Appointments: November 23 @ 1:15pm with Dr. Gresham [address] [place], [place] [phone] Discharge Date/Time: 11/16/23 10:38
== END 2023-11-16 10:38 | disposition home or self-care (01) ==
LOC: ER 19:18 → SURGOUT 19:18 → MS 21:05 → SURGOUT 11-16 06:40 → MS 11-16 06:40
PROVIDERS: Emergency Medicine; Admitting Provider Surgery; Emergency Provider Emergency Medicine; Family Provider Family Medicine; Visit Provider Surgery
PROC: (CPT 840; principal; 2023-11-15 19:30)
DX: K35.80 Unspecified acute appendicitis (principal); E66.9 Obesity, unspecified; Z68.33 Body mass index [BMI] 33.0-33.9, adult
CPT/HCPCS: 44970; 36415; 74176; 80053; 81001; 85025; 87040; 88304; 96374; 96375; 99285; 99999; G0378